=== PATIENT | female | born 1980 | race Caucasian/White ===

== ENCOUNTER → 2020-05-25 15:42 | Outpatient (CLI) | payer OTHER, SELFPAY ==
[2020-05-25 10:58] VITALS: BMI 36.6
== END ==
PROVIDERS: Visit Provider Physician Assistant Surgical
DX: Z20.828 Contact with and (suspected) exposure to other viral communicable diseases (principal)
CPT/HCPCS: 87635; U0003

== ENCOUNTER 2021-03-05 16:28 | Emergency (ER) | payer OTHER, SELFPAY ==
[2021-03-05 16:29] VITALS: BP 165/116; PULSE 109; RESP 16; TEMP 36.3; O2SAT 100; BMI 37.2
--- NOTE | 2021-03-05 17:13 | EKG12_ITS ---
Test Reason : GENERAL ILLNESS Blood Pressure : / mmHG Vent. Rate : 114 BPM Atrial Rate : 114 BPM P-R Int : 140 ms QRS Dur : 076 ms QT Int : 330 ms P-R-T Axes : 041 006 019 degrees QTc Int : 454 ms Sinus tachycardia Otherwise normal ECG Confirmed by SHAUNNA ROE, ANNE ([id number]), film or videotape editor LIZZY PEDROZA ([id number]) on 03/08/2021 12:44:37 PM Referred By: SAMEER Confirmed By:DON MAZA MD
--- NOTE | 2021-03-05 17:29 | EX.ED.DYSGE1 ---
HPI History of Present Illness Chief Complaint: General Illness Informant: patient Onset/Context/Timing Onset: Days Context: Gradual Onset Timing: Continuous Current Severity: Mild Maximum Severity: Mild Narrative Narrative: 40-year-old female no sniffing past medical history. States that she has had bilateral leg pain for a week now is more so in the left thigh. She also states that she has ljve-[id number]-[id number] sensation over her whole body. Denies any recent illness. Denies any nausea, vomiting or diarrhea. Denies fever or chills. She did have similar symptoms when she was a exposed to Covid about a year ago. She believes she has been exposed again. But is not having any URI symptoms nor any fever, cough or shortness of breath. Prior similar symptoms: No Recent Illness/Hospitalization: No PFSH PFSH Medical History no medical history no medical history Allergy/AdvReac Type Severity Reaction Status Date / Time No Known Allergies Allergy Verified 03/05/21 16:32 Surgical History H/O total hysterectomy Social History Smoking Status: Never smoker ROS ROS ED Review of Systems ROS Unobtainable: Denies due to encephalopathy Constitutional Constitutional ED: Denies chills or fever(s) Eyes Eyes: Denies change in vision ENT ENT ED: Denies ear pain or sore throat Cardiovascular Cardiovascular: Denies chest pain Respiratory/Chest Respiratory/Chest: Denies cough or dyspnea Gastrointestinal Gastrointestinal: Denies abdominal pain, diarrhea, nausea or vomiting Genitourinary Genitourinary ED: Denies dysuria Musculoskeletal Musculoskeletal: Denies myalgias Integumentary Denies rash Neurologic Neurologic: Denies headache(s) Psychiatric Psychiatric: Denies depression Endocrine Endocrinology: Denies polyuria Allergic/Immunologic Allergic/Immunologic ED: Denies urticaria EXAM Physical Exam Narrative Exam Narrative: Middle-aged woman no acute distress vital signs stable afebrile. Blood pressure elevated 165/116. HEENT exam normal. Moist remembers. Neck nontender no lymphadenopathy. Lungs clear to auscultation bilaterally. Heart regular rhythm no murmur. Abdomen soft nontender normal bowel sounds no peritoneal signs. Moving all 4 extremities. Nontender. No edema. No cords. Equal symmetrical 5-5 format proofreader strength to both upper extremities. 5 out of 5 strength lower extremities. Dorsi plantarflexion intact. Flex extend to both hips knees and ankles. I did patient take her pants down and evaluated her legs and there is no signs of trauma. There is no redness or warmth. No bruising or tenderness. There is no edema or cords. Based normal. Back nontender. Neurologic exam normal. Const Vital Signs: 03/05/21 16:29 Temperature 97.4 F L Temperature Source Temporal Pulse Rate 109 H Respiratory Rate 16 Blood Pressure 165/116 H Blood Pressure Mean 132 Pulse Ox 100 Positive well nourished, well developed and obese; Negative for cachectic, contractures or unkempt General Appearance ED: well developed and NAD; Negative for unkempt, cachectic, contractures, cyanotic or diaphoretic Nutritional Appearance: obese; Negative for cachectic HEENT Reports moist mucous membranes Negative for tenderness Eyes PERRL and EOMs intact bilaterally Neck no lymphadenopathy, supple and no JVD General: Negative for tenderness Chest Wall inspection of chest normal and palpation of chest normal Resp normal respiratory effort and clear to auscultation bilaterally Auscultation: Negative for rales, rhonchi or diminished lung sounds Cardio regular rate, regular rhythm, S1 normal heart sound, S2 normal heart sound and no murmurs GI normal to inspection, nondistended, normoactive bowel sounds, non-tender and non-distended Palpation: soft Back/Spine no CVA tenderness General Back: Negative for CVA tenderness Cervical Spine: Negative for cervical spine tenderness Thoracic Spine / Upper Back: Negative for thoracic spinal tenderness Extremity normal to inspection General Extremety ED: Negative for edema or tenderness General Extremity: Negative for edema Neuro oriented x3, CN's II-XII intact bilaterally and no sensory deficits noted Sensorium / Orientation: alert; Negative for orientation impaired, lethargic or stuporous Motor Exam: strength 5/5 throughout; Negative for general weakness Psych mental status grossly normal Appearance: Negative for unkempt Attitude: No agitated Mood & Affect: Negative for depressed, anxious or tearful Skin no rashes or lesions noted, no wounds and No skin turgor normal MDM MDM MDM Narrative Medical decision making narrative: Middle-aged female with svko-[id number]-[id number] sensation and discomfort in her legs. Exam is normal. She also thinks she was exposed to Covid. Covid testing and screening labs are being obtained. Repeat exam patient is doing well at 7 PM and to be discharged home. She and I went over all of her test results. She will follow up as an outpatient with her primary care physician. Lab Data Attestation: I reviewed the patient's lab results. Lab results narrative: CBC unremarkable white count of 7. Hemoglobin 13.4. Electrolytes normal gap of 4 normal BUN and creatinine. Glucose 101. Chest x-ray unremarkable. Labs: Laboratory Results - last 24 hr 03/05/21 03/05/21 17:50 17:50 WBC 7.4 RBC 4.58 Hgb 13.4 Hct 40.8 MCV 89.1 MCH 29.3 MCHC 32.8 RDW Std Deviation 41.0 RDW Coeff of Nikos 12.5 Plt Count 208 MPV 10.7 Immature Gran % (Auto) 0.300 Neut % (Auto) 64.6 Lymph % (Auto) 25.4 [place] % (Auto) 9.1 Eos % (Auto) 0.3 Baso % (Auto) 0.3 Absolute Neuts (auto) 4.8 Absolute Lymphs (auto) 1.87 Nucleated RBC % 0 Sodium 139 Potassium 3.8 Chloride 106 Carbon Dioxide 29.0 Anion Gap 4 L BUN 13 Creatinine 0.85 Estim Creat Clear Calc 71.32 Est GFR (MDRD) Af Amer 94 Est GFR (MDRD) Non-Af 77 BUN/Creatinine Ratio 15.2 Glucose 101 Calcium 9.1 Radiography Chest X-Ray - ED: 1 View, Read by ED Physician, Read by Radiologist, Normal, Heart, Lungs, Mediastinum, Bony Structures, No Acute Disease and Chronic Changes Diagnostic Testing: Clinical Impression(s) from Imaging Studies Chest X-Ray 03/05/21 17:34 IMPRESSION: Normal x-ray examination of the chest. Electronically Signed: Jack Ortiz MD at 17:54 EDT , Service support , Chest x-ray portable 1 view started by myself and radiologist shows no acute abnormality. Normal cardiac silhouette and lung doran. No mediastinum. Rhythm Strip Rhythm Strip: Sinus Tach Rate: 114 Ectopy: None EKG Initial EKG: Attestation: I personally reviewed and interpreted this EKG as follows: Interpretation: Sinus Rhythm, No Acute Injury Pattern and Sinus Tachycardia Comments: Sinus tachycardia rate of 114 no acute signs of AK nor ischemia nor dysrhythmia. Prior EKG tracings: not available for review Discharge Plan Triage Chief Complaint: General Illness Other Complaint: Lower Extremity Injury ED Provider: Tom Lee Dx/Rx/DC Orders Clinical Impression: Paresthesias Instructions: ED Paraesthesias Activity Restrictions/Additional Instructions: All your labs EKG and chest x-ray along with your Covid test were all normal today and negative. I do not have a specific reason for your symptoms. Follow-up with your primary care physician for further evaluation. Disposition Disposition: Home, Self Care
--- NOTE | 2021-03-05 17:34 | RAD_ITS ---
STUDY: X-RAY CHEST REASON FOR EXAM: Female, 40 years old. cp TECHNIQUE: Single frontal view of the chest. COMPARISON: 06/20/2014 FINDINGS: The lungs are clear and expanded. There is no demonstrated pleural abnormality. Normal size heart. Normal mediastinum and chelo. Normal visualized pulmonary arteries. Normal visualized aortic arch and descending thoracic aorta. Normal visualized thoracic spine. Normal visualized ribs, clavicles, and shoulders. There is no demonstrated abnormality of the visualized soft tissue structures of the upper abdomen. RAD/Chest 1 View (Portable) IMPRESSION: Normal x-ray examination of the chest. Electronically Signed: Jack Ortiz MD at 17:54 EDT , Service support ,
[2021-03-05 18:04] LABS: Absolute Lymphocyte Count 1.87 X10^3/uL (0.83-4.51); Absolute Neutrophil Count 4.8 X10^3/uL (2.0-7.7); Basophil# 0.02 X10^3/uL; Basophil% 0.3 % (0-1); Eosinophil# 0.02 X10^3/uL; Eosinophils% 0.3 % (0-5); Hematocrit 40.8 % (37-47); Hemoglobin 13.4 g/dL (12.0-15.0); Lymphocyte # 1.87 X10^3/ul (0.83-4.51); Lymphocyte % 25.4 % (19-41); Mean Corp Hgb Conc 32.8 g/dL (32-36); Mean Corpuscular Hgb 29.3 pg (27.0-32.0); Mean Corpuscular Volume 89.1 fL (81-99); Mean Platelet Vol. 10.7 fl (6.2-12.0); Monocyte# 0.67 X10^3/uL; Monocyte% 9.1 % (0-10); NRBC Flagged by Analyzer 0 % (0-5); Neutrophil # 4.77 X10^3/uL (2.7-7.7); Neutrophil % 64.6 % (47-70); Platelet Count 208 K/mm3 (150-450); RBC Distribution Width CV 12.5 % (11.6-14.6); Red Blood Count 4.58 M/mm3 (4.2-5.4); White Blood Count 7.4 K/mm3 (4.4-11.0)
[2021-03-05 18:11] LABS: Anion Gap 4 (5-15); BUN 13 mg/dL (7-18); BUN/Creat Ratio 15.2 RATIO (10-20); Calcium,Total 9.1 mg/dL (8.5-10.1); Chloride 106 mmol/L (98-107); Creatinine, Serum 0.85 mg/dL (0.55-1.02); EST Glomerular Filtration Rate 77 mL/min (>60); Est Glom Filt Rate - Afr Amer 94 mL/min (>60); Estimated Creatinine Clearance 71.32 ml/min; Glucose 101 mg/dL (74-106); Potassium 3.8 mmol/L (3.5-5.1); Sodium Level 139 mmol/L (136-145)
[2021-03-05 19:39] VITALS: BP 148/81
[2021-03-05 19:40] VITALS: BP 148/81
--- NOTE | 2021-03-05 19:40 | ED.RN ---
PT VERBALIZED THAT SHE WAS UPSET SHE DID NOT GET SCANNED FOR A BLOOD CLOT. THEN VERBALIZED SHE THOUGHT SHE WAS HAVING A STROKE. ASSURED HER SHE WAS NOT SHOWING SYMPTOMS OF A STROKE OR BLOOD CLOT PER FAST ASSESSMENT AND DR. SAVAGE. ENCOURAGED TO FOLLOW UP WITH PCP. PT ALSO VERBALIZED BEING FRUSTRATED BECAUSE SHE WAS NOT GIVEN STRONG PAIN MEDICINE FOR HER PAIN. ENCOURAGED TO TAKE TYLENOL/MOTRIN.
--- NOTE | 2021-03-05 19:42 | CM.ED ---
SW Note Referral Source: Case Find Referral Reason: No PCP listed. SW spoke to patient's RN. Patient's RN advised patient has been discharged however, patient did voice she had a PCP. No further SW services needed at this time. Diamond VAN
== END 2021-03-05 19:43 | disposition home or self-care (01) ==
PROVIDERS: Emergency Provider Emergency Medicine
DX: R20.2 Paresthesia of skin (principal); E66.9 Obesity, unspecified
CPT/HCPCS: 71045; 80048; 85025; 87426; 93005; 99283

== ENCOUNTER → 2022-02-15 | Outpatient (CLI) | payer OTHER, SELFPAY | END | disposition home or self-care (01) | PROVIDERS: PCP Family Medicine; Visit Provider Family Medicine | DX: J02.9 Acute pharyngitis, unspecified (principal) | CPT/HCPCS: 87635; U0003; U0005 ==

== ENCOUNTER → 2022-06-23 | Outpatient (CLI) | payer OTHER, SELFPAY ==
--- NOTE | 2022-06-23 15:40 | BI_ITS ---
MAMMOGRAPHY - BILATERAL SCREENING REASON FOR EXAM: Female, 42 years old. Routine annual screening examination. PERTINENT HISTORY: Grandmother with breast cancer. TECHNIQUE: Digital bilateral breast denton (3D mammographic acquisition) in the CC and MLO projections. 2-D mediolateral oblique (MLO) and craniocaudad (CC) views of both breasts were obtained. CAD: Full Field Digital Mammography with Computer Added Detection was performed. COMPARISON: Comparison is made with prior study dated 12/09/2014. FINDINGS: Breast Composition: The breasts are almost entirely fatty. There are no dominant masses or suspicious calcifications. Stable small benign-appearing left axillary lymph nodes. No other significant abnormalities are identified. There has been no significant change since the prior study. BI/SCRN MAMM (CAD)W/DENTON BILAT IMPRESSION: Stable bilateral screening mammogram. Yearly follow-up mammogram recommended. (A) ASSESSMENT CATEGORY: BIRADS Category 2: Benign. A letter regarding these results will be sent to the patient by the facility within 30 days. Approximately 10% of breast cancers are not detected by mammography. A normal mammogram should not delay biopsy of a clinically suspicious abnormality. [id number] Electronically Signed: Alvino Perry MD at 8:16 EST ,
== END | disposition home or self-care (01) ==
LOC: OPBI 15:37
PROVIDERS: PCP Family Medicine; Visit Provider Family Medicine
DX: Z12.31 Encounter for screening mammogram for malignant neoplasm of breast (principal)
CPT/HCPCS: 77063; 77067

== ENCOUNTER → 2022-08-02 | Outpatient (CLI) | payer OTHER, SELFPAY ==
[2022-08-02 15:05] LABS: Absolute Lymphocyte Count 1.83 X10^3/uL (0.83-4.51); Absolute Neutrophil Count 3.1 X10^3/uL (2.0-7.7); Basophil# 0.02 X10^3/uL; Basophil% 0.4 % (0-1); Eosinophil# 0.04 X10^3/uL; Eosinophils% 0.7 % (0-5); Hematocrit 43.5 % (37-47); Hemoglobin 13.9 g/dL (12.0-15.0); Lymphocyte # 1.83 X10^3/ul (0.83-4.51); Lymphocyte % 34.2 % (19-41); Mean Corpuscular Hgb 29.2 pg (27.0-32.0); Mean Corpuscular Volume 91.4 fL (81-99); Mean Platelet Vol. 11.6 fl (6.2-12.0); Monocyte# 0.37 X10^3/uL; Monocyte% 6.9 % (0-10); NRBC Flagged by Analyzer 0 % (0-5); Neutrophil # 3.08 X10^3/uL (2.7-7.7); Neutrophil % 57.6 % (47-70); Platelet Count 235 K/mm3 (150-450); RBC Distribution Width CV 12.4 % (11.6-14.6); RBC Distribution Width SD 41.1 fl (35.1-43.9); Red Blood Count 4.76 M/mm3 (4.2-5.4); White Blood Count 5.4 K/mm3 (4.4-11.0)
[2022-08-02 15:26] LABS: T3 Total - Triiodothyronine 1.31 ng/mL (0.6-1.81); Vitamin B12 422 pg/mL (211-911); Vitamin D,25 Hydroxy 52.7 ng/mL
[2022-08-02 15:28] LABS: ALB/GLOB Ratio 0.8 RATIO (0.9-2.4); AST(SGOT) 28 U/L (15-37); Alanine Aminotransfer ALT/SGPT 48 U/L (13-56); Albumin, Serum 3.7 g/dL (3.2-5.0); Alkaline Phosphatase 83 U/L (45-117); Anion Gap 6 (5-15); BUN 11 mg/dL (7-18); BUN/Creat Ratio 12.7 RATIO (10-20); Calcium,Total 9.3 mg/dL (8.5-10.1); Chloride 104 mmol/L (98-107); Cholesterol 187 mg/dL (200); Creatinine, Serum 0.87 mg/dL (0.55-1.02); EST Glomerular Filtration Rate 75 mL/min (>60); Est Glom Filt Rate - Afr Amer 91 mL/min (>60); Free T3 2.6 pg/mL (2.18-3.98); Globulin 4.4 g/dL (2.2-4.2); Glucose 82 mg/dL (74-106); High Density Lipoprotein 43 mg/dL; Potassium 4.3 mmol/L (3.5-5.1); Protein, Total 8.1 g/dL (6.4-8.2); Sodium Level 138 mmol/L (136-145); T4 Free Direct 1.12 ng/dL (0.76-1.46); T4 Total, Thyroxin 9.3 ug/dL (4.8-13.9); Thyroid Stim Hormone (TSH) 2.42 uIU/mL (0.358-3.74); Triglycerides 158 mg/dL; Very Low Density Lipoprotein 32 mg/dL (5-40)
[2022-08-09 03:07] LABS: Thyroid Peroxidase AB 10 IU/mL (0-34)
[2022-08-09 10:10] LABS: T3 Reverse 16.6 ng/dL (9.2-24.1); Thyroglobulin Antibody < 1.0 IU/mL (0.0-0.9)
== END | disposition home or self-care (01) ==
LOC: BFHLAB 13:07
PROVIDERS: PCP Family Medicine; Visit Provider Family Medicine
DX: E03.9 Hypothyroidism, unspecified (principal); R53.83 Other fatigue; E55.9 Vitamin D deficiency, unspecified; E78.5 Hyperlipidemia, unspecified; D64.9 Anemia, unspecified; E04.9 Nontoxic goiter, unspecified; Z51.81 Encounter for therapeutic drug level monitoring
CPT/HCPCS: 36415; 80053; 80061; 82306; 82607; 84436; 84439; 84443; 84480; 84481; 84482; 85025; 86376; 86800

== ENCOUNTER → 2024-06-17 | Outpatient (CLI) | payer OTHER, SELFPAY ==
[2024-06-17 15:15] LABS: Absolute Lymphocyte Count 1.56 X10^3/uL (0.83-4.51); Absolute Neutrophil Count 2.7 X10^3/uL (2.0-7.7); Basophil# 0.02 X10^3/uL; Basophil% 0.4 % (0-1); Eosinophil# 0.05 X10^3/uL; Eosinophils% 1.1 % (0-5); Hematocrit 41.2 % (37-47); Hemoglobin 13.3 g/dL (12.0-15.0); Lymphocyte # 1.56 X10^3/ul (0.83-4.51); Lymphocyte % 33.1 % (19-41); Mean Corp Hgb Conc 32.3 g/dL (32-36); Mean Corpuscular Hgb 29.1 pg (27.0-32.0); Mean Corpuscular Volume 90.2 fL (81-99); Mean Platelet Vol. 11.3 fl (6.2-12.0); Monocyte# 0.39 X10^3/uL; Monocyte% 8.3 % (0-10); NRBC Flagged by Analyzer 0 % (0-5); Neutrophil # 2.69 X10^3/uL (2.7-7.7); Neutrophil % 56.9 % (47-70); Platelet Count 217 K/mm3 (150-450); RBC Distribution Width CV 12.5 % (11.6-14.6); RBC Distribution Width SD 41.2 fl (35.1-43.9); Red Blood Count 4.57 M/mm3 (4.2-5.4); White Blood Count 4.7 K/mm3 (4.4-11.0)
[2024-06-17 16:03] LABS: ALB/GLOB Ratio 0.9 RATIO (0.9-2.4); AST(SGOT) 25 U/L (15-37); Alanine Aminotransfer ALT/SGPT 49 U/L (13-56); Albumin, Serum 3.6 g/dL (3.2-5.0); Alkaline Phosphatase 87 U/L (45-117); Anion Gap 6 (5-15); BUN 13 mg/dL (7-18); BUN/Creat Ratio 16.3 RATIO (10-20); Calcium,Total 9.2 mg/dL (8.5-10.1); Chloride 107 mmol/L (98-107); Cholesterol 182 mg/dL (200); EST Glomerular Filtration Rate 82 mL/min (>60); Est Glom Filt Rate - Afr Amer 100 mL/min (>60); Estradiol 21.5 pg/mL; Free T3 2.5 pg/mL (2.18-3.98); Globulin 4.1 g/dL (2.2-4.2); Glucose 85 mg/dL (74-106); High Density Lipoprotein 48 mg/dL; Potassium 3.6 mmol/L (3.5-5.1); Protein, Total 7.7 g/dL (6.4-8.2); Sodium Level 140 mmol/L (136-145); T4 Free Direct 1.04 ng/dL (0.76-1.46); Triglycerides 183 mg/dL; Very Low Density Lipoprotein 37 mg/dL (5-40)
[2024-06-17 16:52] LABS: Vitamin B12 438 pg/mL (211-911); Vitamin D,25 Hydroxy 41.5 ng/mL
[2024-06-19 05:07] LABS: PROGESTERONE 0.1 ng/mL (.)
[2024-06-21 11:07] LABS: Testosterone, % Free 2.85 % (0.50-2.80); Testosterone, Free 0.46 ng/dL (0.10-0.85); Testosterone, Total 16 ng/dL (4-50); Thyroglobulin Antibody < 1.0 IU/mL (0.0-0.9); Thyroid Peroxidase AB 10 IU/mL (0-34)
== END | disposition home or self-care (01) ==
LOC: BFHLAB 11:52
PROVIDERS: PCP Family Medicine; Visit Provider Family Medicine
DX: E03.9 Hypothyroidism, unspecified (principal); E53.8 Deficiency of other specified B group vitamins; R53.83 Other fatigue; N80.9 Endometriosis, unspecified; E55.9 Vitamin D deficiency, unspecified; Z51.81 Encounter for therapeutic drug level monitoring
CPT/HCPCS: 36415; 80053; 80061; 82306; 82607; 82627; 82670; 84144; 84402; 84403; 84439; 84443; 84481; 85025; 86376; 86800; 82626

== ENCOUNTER → 2024-07-04 | Outpatient (CLI) | payer OTHER, SELFPAY ==
--- NOTE | 2024-07-04 15:14 | BI_ITS ---
PROCEDURE: SCRN MAMM (CAD)W/DENTON BILAT REASON FOR EXAM: F, Age 44 y/o, grandmother with breast cancer. Routine annual follow-up. TECHNIQUE: Bilateral screening digital breast tomosynthesis with 2D and 3D images. Computer aided detection. COMPARISON: Prior exam(s) dating back to June 23, 2022.. FINDINGS: The breasts are almost entirely fatty. Stable benign-appearing bilateral axillary lymph nodes. No suspicious masses, areas of developing architectural distortion, or suspicious calcifications. BI/SCRN MAMM (CAD)W/DENTON BILAT IMPRESSION: BI-RADS 2: BENIGN. RECOMMEND ANNUAL MAMMOGRAPHIC SCREENING. Follow-up code: Routine Follow-up The patient will be notified of the results by letter. Reading Location: [place] [id number]
== END | disposition home or self-care (01) ==
PROVIDERS: PCP Family Medicine; Referring Provider Family Medicine; Visit Provider Family Medicine
DX: Z12.31 Encounter for screening mammogram for malignant neoplasm of breast (principal)
CPT/HCPCS: 77063; 77067

== ENCOUNTER → 2024-07-15 | Outpatient (CLI) | payer OTHER, SELFPAY ==
--- NOTE | 2024-07-15 12:22 | US_ITS ---
PROCEDURE: THYROID REASON FOR EXAM: Thyromegaly TECHNIQUE: Thyroid ultrasound COMPARISON: None. FINDINGS: Right thyroid lobe measures 5.0 x 1.6 x 1.1. Left thyroid lobe measures 4.5 x 1.3 x 0.8. Isthmus thickness is. Thyroid Size: Normal Background Echotexture: Homogeneous Thyroid Nodules: Right lesion 1: Solid hyperechoic nodule with smooth margins measuring 0.7 x 0.8 x 0.3 cm. TI-RADS 3 Right lesion 2: Solid hyperechoic nodule with smooth margins measuring 0.6 x 0.7 x 0.3 cm. TI-RADS 3 Left lesion 1: Cystic anechoic lesion with smooth margins measuring 0.4 x 0.3 x 0.2 cm. TI-RADS 1 Left lesion 2: Solid hyperechoic nodule with smooth margins measuring 0.7 x 0.7 x 0.3 cm. TI-RADS 3 US/Thyroid IMPRESSION: Bilateral TI-RADS 3 thyroid nodules. No recommendation at this time due to nuno reddy Reading Location: [facility]
== END | disposition home or self-care (01) ==
LOC: US 12:21
PROVIDERS: PCP Family Medicine; Referring Provider Family Medicine; Visit Provider Family Medicine
DX: E01.0 Iodine-deficiency related diffuse (endemic) goiter (principal)
CPT/HCPCS: 76536